=== PATIENT | female | born 1995 | race African-American/Black ===

== ENCOUNTER 2016-07-12 17:59 | Emergency (ER) | payer OTHER ==
--- NOTE | 2016-07-12 18:06 | PDOC ---
Rapid Medical Evaluation Time Seen by Provider: 07/12/16 18:01 Medical Evaluation: Allergies Allergy/AdvReac Type Severity Reaction Status Date / Time No Known Allergies Allergy Verified 07/24/13 11:52
--- NOTE | 2016-07-12 18:12 | PDOC ---
History of Present Illness - General History Source: Patient Exam Limitations: No Limitations - History of Present Illness Initial Comments: 07/12/16 18:20 CHIEF COMPLAINT: Abdominal pain/nausea/vomiting Advocacy Director: Dr. Santiago HISTORY OF PRESENT ILLNESS: Patient is a 21 year old female presented to the ED with the chief complaints of abdominal pain/nausea and vomiting. A/c to the patient, she did a home on Jun 29, 2016 and was positive. Since then she has been having nausea, 4-5 episodes of vomiting/day. Hasn't visited her sleep lab technician and hasn't taken vitamins. Patient says she has burning sensation over the epigastric area and throat every time she vomits and feels tired/ weak. Also mentions increased frequency of urination but denies dysuria, urgency, hesitancy or incontinence. Bowel habits normal. Has vaginal discharge more than before but is not itching. No vaginal bleeding. Had chlamydia once many years ago but no STD's since then. No new sexual partners over the past. Has a 3 year old healthy daughter. Appetite decreased Sleep disturbed since her illness. Recent Travel: None PAST MEDICAL HISTORY: None PAST SURGICAL HISTORY: As mentioned above Occupation: legal investigator Previous : Normal vaginal delivery, no complications. Social History: Smoking: Denies Alcohol: Occasional, hasn't taken alcohol since 3 weeks Drugs: Denies Family History: Unknown Allergies: NKDA 07/12/16 18:39 <Pilar Diggs - Last Filed: 07/12/16 18:51> <Rula Mancilla - Last Filed: 07/12/16 19:58> - General Stated Complaint: VOMITING/ABD PAIN/ Time Seen by Provider: 07/12/16 18:01 Past History - Past Medical History Asthma: No Cancer: No Cardiac Disorders: No Diabetes: No HTN: No Seizures: No Thyroid Disease: No - Immunization History Immunization Up to Date: (FLU ) - Psycho/Social/Smoking Cessation Hx Anxiety: No Suicidal Ideation: No Smoking History: Never smoked Have you smoked in the past 12 months: No Number of Cigarettes Smoked Daily: 0 Hx Alcohol Use: No Drug/Substance Use Hx: No Substance Use Type: None Hx Substance Use Treatment: No <Pilar Diggs - Last Filed: 07/12/16 18:51> <Rula Mancillah - Last Filed: 07/12/16 19:58> - Past Medical History Allergies/Adverse Reactions: Allergies Allergy/AdvReac Type Severity Reaction Status Date / Time No Known Allergies Allergy Verified 07/12/16 18:25 Home Medications: Ambulatory Orders Vitamins (Sjr) - 1 tab PO DAILY #1 10/01/13 Review of Systems - Review of Systems Able to Perform ROS?: Yes Comments:: 07/12/16 18:35 CONSTITUTIONAL: Absent: fever, chills, diaphoresis, generalized weakness, malaise, loss of appetite HEENT: Absent: rhinorrhea, nasal congestion, throat pain, throat swelling, difficulty swallowing, mouth swelling, ear pain, eye pain, visual Changes CARDIOVASCULAR: Absent: chest pain, syncope, palpitations, irregular heart rate, lightheadedness , peripheral edema RESPIRATORY: Absent: cough, shortness of breath, dyspnea with exertion, orthopnea, wheezing, stridor, hemoptysis GASTROINTESTINAL: Present: abdominal pain,nausea, vomiting Absent: , abdominal distension, diarrhea, constipation, melena, hematochezia GENITOURINARY: Absent: dysuria, frequency, urgency, hesitancy, hematuria, flank pain, genital pain MUSCULOSKELETAL: Absent: myalgia, arthralgia, joint swelling SKIN: Absent: rash, itching, pallor HEMATOLOGIC/IMMUNOLOGIC: Absent: easy bleeding, easy bruising, lymphadenopathy, frequent infections ENDOCRINE: Absent: unexplained weight gain, unexplained weight loss, heat intolerance, cold intolerance NEUROLOGIC: Absent: headache, focal weakness or paresthesias, dizziness, unsteady gait, seizure, mental status changes, bladder or bowel incontinence PSYCHIATRIC: Absent: anxiety, depression, suicidal or homicidal ideation, hallucinations. Is the patient limited Czech proficient: No <Pilar Diggs - Last Filed: 07/12/16 18:51> *Physical Exam - Physical Exam Comments: 07/12/16 18:40 PE: GENERAL: Awake, alert, and fully oriented, in no acute distress HEAD: No signs of trauma EYES: PERRLA, EOMI, sclera anicteric, conjunctiva clear ENT: Auricles normal inspection, hearing grossly normal, nares patent, oropharynx clear without exudates. Moist mucosa NECK: Normal ROM, supple, no lymphadenopathy, JVD, or masses LUNGS: Breath sounds equal, clear to auscultation bilaterally. No wheezes, and no crackles.. HEART: Regular rate and rhythm, normal S1 and S2, no murmurs, rubs or gallops ABDOMEN: Soft, nontender, normoactive bowel sounds. No guarding, no rebound. No masses EXTREMITIES: Normal range of motion, no edema. No clubbing or cyanosis. No cords, erythema, or tenderness NEUROLOGICAL: Cranial nerves II through XII grossly intact. Normal speech, normal gait SKIN: Warm, Dry, normal turgor, no rashes or lesions noted. <Pilar Diggs - Last Filed: 07/12/16 18:51> - Vital Signs Last Vital Signs Temp Pulse Resp BP Pulse Ox 98.7 F 79 18 128/77 100 07/12/16 17:59 07/12/16 17:59 07/12/16 17:59 07/12/16 17:59 07/12/16 17:59 <Rula Mancilla - Last Filed: 07/12/16 19:58> ED Treatment Course - LABORATORY CBC & Chemistry Diagram: 07/12/16 18:50 07/12/16 18:50 - ADDITIONAL ORDERS Additional order review: Laboratory Results 07/12/16 07/12/16 18:56 18:50 Sodium 135 L Potassium 3.5 Chloride 99 Carbon Dioxide 29 D Anion Gap 7 L BUN 7 Creatinine 0.6 D Creat Clearance w eGFR > 60 Random Glucose 73 L Calcium 8.8 Total Bilirubin 0.5 AST 9 L ALT 15 Alkaline Phosphatase 75 Total Protein 7.7 Albumin 4.0 Urine Color Yellow Urine Appearance Slcloudy Urine pH 6.0 Ur Specific [place] 1.020 Urine Protein Negative Urine Glucose (UA) Negative Urine Ketones Negative Urine Blood Negative Urine Nitrite Negative Urine Bilirubin Negative Urine Urobilinogen 2.0 e.u/dl H Ur Leukocyte Esterase Trace H Urine RBC 1 Urine WBC 5 Ur Epithelial Cells Few Urine Bacteria Rare Urine Mucus Many 07/12/16 18:50 RBC 4.52 MCV 81.3 MCHC 33.1 RDW 14.8 D MPV 9.7 Neutrophils % 71.5 Lymphocytes % 16.5 D Monocytes % 9.3 Eosinophils % 2.1 D Basophils % 0.6 <Rula Mancilla - Last Filed: 07/12/16 19:58> Medical Decision Making - Medical Decision Making 07/12/16 18:20 Patient seen and examined at bed side. Vitals, unremarkable. Labs noted, unremarkable. Patient looks comfortable. Will order CBC, CMP, UA, Bhcg Quantitative. R/O Metabolic disturbance due to vomiting Bhcg (quantitative) to know gestational age as patient doesn't remember her LMP. IV NS @ 125mls/hr Signed out to Dr. Mancilla Illness, Investigation and Plan of care explained to the patient. She verbalized understanding. Case seen and discussed with Dr. Mancilla. <Pilar Diggs - Last Filed: 07/12/16 18:51> *DC/Admit/Observation/Transfer <Pilar Diggs - Last Filed: 07/12/16 18:51> <Rula Mancilla - Last Filed: 07/12/16 19:58> Diagnosis at time of Disposition: Vomiting Qualifiers: Vomiting type: unspecified Vomiting Intractability: non-intractable Nausea presence: with nausea Qualified Code(s): R11.2 - Nausea with vomiting, unspecified - Discharge Dispostion Disposition: ELOPED
[2016-07-12 18:25] VITALS: BP 128/77; PULSE 79; TEMP 98.7; BMI 18.8
[2016-07-12] MEDS ORDERED: SODIUM CHLORIDE 1,000 ML IV SCH (19:00)
[2016-07-12 19:01] LABS: BASOPHIL 0.6 % (0-2.0); EOSINOPHIL 2.1 % (0-4.5); MCH 26.9 pg (25.7-33.7); MCHC 33.1 g/dl (32.0-36.0); MEAN CELL VOLUME 81.3 fl (80-96); MEAN PLT VOLUME 9.7 fl (7.5-11.1); NEUTROPHILS 71.5 % (42.8-82.8); PLATELET COUNT 276 K/MM3 (134-434); RDW 14.8 % (11.6-15.6); WHITE BLOOD COUNT 9.4 K/mm3 (4.0-10.0)
[2016-07-12 19:24] LABS: URINE APPEARANCE SLCLOUDY; URINE BILIRUBIN NEGATIVE (NEGATIVE); URINE BLOOD NEGATIVE (NEGATIVE); URINE COLOR YELLOW; URINE GLUCOSE (UA) NEGATIVE (NEGATIVE); URINE KETONE NEGATIVE (NEGATIVE); URINE NITRITE NEGATIVE (NEGATIVE); URINE PROTEIN NEGATIVE (NEGATIVE); URINE UROBILINOGEN 2.0 E.U/dl E.U./dl (0.2-1.0)
[2016-07-12 19:25] LABS: URINE LEUK ESTERASE TRACE (NEGATIVE)
--- NOTE | 2016-07-12 19:34 | PDOC ---
Attending Attestation - Resident Resident Name: Pilar Diggs - HPI HPI: 07/12/16 19:27 21 yo female states she had a positive home test on Jun 29. She said her last menstrual cycle was in May. She presents today because she has had nausea and vomiting and tender breasts -she wants to know how far along she is -she had a benign abdominal exam -she denies any pelvic pain or vaginal bleeding -pt eloped prior to having her lab results - Physicial Exam PE: 07/12/16 19:34 abdominal exam -soft, nontender,no guarding,no rebound lungs cta b/l [id number] pelvic -pt denies any cramping and bleeding neuro axox3, no gross focal deficits, appropriate affect - Medical Decision Making 07/12/16 19:37 impression is that pt came for preg US to find out how far along she was in her but I had to have bhcg back first and she didnt want to wait for lab results and she walked out of the ER
[2016-07-12 19:41] LABS: ANION GAP 7 (8-16); BILIRUBIN,TOTAL 0.5 mg/dL (0.2-1.0); CALCIUM 8.8 mg/dL (8.5-10.1); CO2 29 mmol/L (21-32); CREATININE 0.6 mg/dL (0.55-1.02); GLUCOSE,RANDOM 73 mg/dL (74-106); SGOT/AST 9 U/L (15-37); SGPT/ALT 15 U/L (12-78); TOT PROT 7.7 g/dl (6.4-8.2)
[2016-07-12 19:42] LABS: ALK PHOS 75 U/L (45-117)
[2016-07-12 19:45] LABS: URINE BACTERIA RARE /hpf (NONE SEEN); URINE MUCUS MANY; URINE RBC 1 /hpf (0-3); URINE WBC 5 /hpf (3-5)
== END 2016-07-12 19:55 | disposition left against medical advice (07) ==
LOC: JER 17:59
DX: O26.891 Other specified pregnancy related conditions, first trimester (principal); R11.2 Nausea with vomiting, unspecified; Z3A.00 Weeks of gestation of pregnancy not specified
CPT/HCPCS: 36415; 80053; 81003; 81015; 84702; 85025; 99282-25

== ENCOUNTER 2017-06-25 00:53 | Emergency (ER) | payer SELFPAY ==
[2017-06-25 01:21] VITALS: BMI 21.1
[2017-06-25] MEDS ORDERED: ACETAMINOPHEN 1000 MG/100 ML VIAL (NON FORMULARY) IVPB ONE ×2 (01:46→01:53)
[2017-06-25] MEDS ORDERED: ONDANSETRON 4 MG/2 ML VIAL IVPUSH PRN (01:46)
[2017-06-25] MEDS ORDERED: SODIUM CHLORIDE 0.9% 1000 ML INFUS.BAG IV ONE (01:46)
[2017-06-25] MEDS ORDERED: ONDANSETRON 4 MG/2 ML VIAL ONE (01:52)
[2017-06-25] MEDS ORDERED: ACETAMINOPHEN INJECTION 100 ML IVPB ONE (01:53)
[2017-06-25 02:19] LABS: HEMATOCRIT 36.3 % (32.4-45.2); HEMOGLOBIN 12.1 GM/dL (10.7-15.3); MCH 27.5 pg (25.7-33.7); MCHC 33.4 g/dl (32.0-36.0); MEAN CELL VOLUME 82.5 fl (80-96); MEAN PLT VOLUME 9.4 fl (7.5-11.1); PLATELET COUNT 230 K/MM3 (134-434); RDW 15.6 % (11.6-15.6); WHITE BLOOD COUNT 4.4 K/mm3 (4.0-10.0)
[2017-06-25 02:48] LABS: ALBUMIN 3.7 g/dl (3.4-5.0); ANION GAP 9 (8-16); BILIRUBIN,TOTAL 0.3 mg/dL (0.2-1.0); BLOOD UREA NITROGEN 7 mg/dL (7-18); CALCIUM 8.4 mg/dL (8.5-10.1); CHLORIDE 99 mmol/L (98-107); CO2 27 mmol/L (21-32); CREATININE 0.7 mg/dL (0.55-1.02); GLUCOSE,RANDOM 92 mg/dL (74-106); POTASSIUM 3.4 mmol/L (3.5-5.1); SGOT/AST 15 U/L (15-37); SGPT/ALT 19 U/L (12-78); SODIUM 135 mmol/L (136-145); TOT PROT 7.4 g/dl (6.4-8.2)
[2017-06-25 02:51] LABS: ALK PHOS 71 U/L (45-117)
[2017-06-25 03:35] VITALS: BP 122/61; PULSE 84; TEMP 99.1
--- NOTE | 2017-06-25 03:52 | PDOC ---
History of Present Illness - General Chief Complaint: Cold Symptoms Stated Complaint: VOMITING Time Seen by Provider: 06/25/17 01:06 - History of Present Illness Initial Comments: 06/25/17 03:48 CHIEF COMPLAINT: fever, vomiting HISTORY OF PRESENT ILLNESS: 22 yo F with recent positive preg test (two days ago ), cough, chills, nightsweats, body aches x 2 days. Patient states she did not know she had a fever until she arrived to ER. Patient reports one episode of vomiting today, denies diarrhea. Denies any abdominal pain, cramping, bleeding. Denies any urinary discomfort, burning, frequency. PAST MEDICAL HISTORY: Denies past medical history FAMILY HISTORY: Denies SOCIAL HISTORY: Denies tobacco, alcohol, illicit drug use. SURGICAL HISTORY: Denies ALLERGIES: No known drug allergies REVIEW OF SYSTEMS as per HPI PHYSICAL EXAM General Appearance: Well-appearing, appropriately dressed. No apparent distress , no intoxication. HEENT: EOMI, PERRLA, normal ENT inspection, normal voice, TMs normal, pharynx normal. No conjunctival pallor. No photophobia, scleral icterus. Neck: Supple. Trachea midline. No tenderness, rigidity, carotid bruit, stridor , lymphadenopathy, or thyromegaly. Respiratory/Chest: Lungs CTAB. No shortness of breath, chest tenderness, respiratory distress, accessory muscle use. No crackles, rales, rhonchi, stridor , wheezing, dullness Cardiovascular: RRR. S1, S2. No JVD, murmur, bradycardia, tachycardia. Vascular Pulses: Dorsalis-Pedis (R): 2+, Dorsalis-Pedis (L): 2+ Gastrointestinal/Abdominal: Normal bowel sounds. Abdomen soft, non-distended. No tenderness or rebound tenderness. No organomegaly, pulsatile mass, guarding , hernia, hepatomegaly, splenomegaly. Lymphatic: No adenopathy, tenderness. Musculoskeletal/Extremities: Normal inspection. FROM of all extremities, normal capillary refill. Pelvis Stable. No CVA tenderness. No tenderness to extremities, pedal edema, swelling, erythema or deformity. Integumentary: Appropriate color, dry, warm. No cyanosis, erythema, jaundice or rash Neurologic: headhunter II-XII intact. Fully oriented, alert. Appropriate mood/affect. Motor strength 5/5. No appreciable EOM palsy, facial droop or sensory deficit. 06/25/17 03:57 06/25/17 04:02 Past History - Past Medical History Allergies/Adverse Reactions: Allergies Allergy/AdvReac Type Severity Reaction Status Date / Time No Known Allergies Allergy Verified 06/25/17 01:18 Home Medications: Ambulatory Orders Vitamins (Sjr) - 1 tab PO DAILY #1 10/01/13 Acetaminophen [Tylenol -] 500 mg PO Q6H PRN #28 tablet 06/25/17 Ondansetron [Zofran Odt -] 4 mg SL TID PRN #21 od.tablet 06/25/17 Oseltamivir Phosphate [Tamiflu -] 75 mg PO BID #10 capsule 06/25/17 Asthma: No Cancer: No Cardiac Disorders: No Diabetes: No HTN: No Seizures: No Thyroid Disease: No - Reproductive History Is Patient Now?: Yes (#): 2 Para: 1 - Immunization History Immunization Up to Date: (FLU ) - Suicide/Smoking/Psychosocial Hx Smoking History: Never smoked Have you smoked in the past 12 months: No Number of Cigarettes Smoked Daily: 0 Information on smoking cessation initiated: No Hx Alcohol Use: No Drug/Substance Use Hx: No Substance Use Type: None Hx Substance Use Treatment: No *Physical Exam - Vital Signs Last Vital Signs Temp Pulse Resp BP Pulse Ox 99.1 F 84 16 122/61 99 06/25/17 03:35 06/25/17 03:35 06/25/17 03:35 06/25/17 03:35 06/25/17 03:35 ED Treatment Course - LABORATORY CBC & Chemistry Diagram: 06/25/17 02:04 06/25/17 02:04 - ADDITIONAL ORDERS Additional order review: Laboratory Results 06/25/17 02:04 Sodium 135 L Potassium 3.4 L Chloride 99 Carbon Dioxide 27 Anion Gap 9 BUN 7 Creatinine 0.7 Creat Clearance w eGFR > 60 Random Glucose 92 Calcium 8.4 L Total Bilirubin 0.3 D AST 15 ALT 19 Alkaline Phosphatase 71 Total Protein 7.4 Albumin 3.7 Beta HCG, Quant 5512.6 06/25/17 02:04 RBC 4.40 MCV 82.5 MCHC 33.4 RDW 15.6 MPV 9.4 Neutrophils % No Result Required. Lymphocytes % No Result Required. - Medications Given in the ED: ED Medications Discontinued Medications Generic Name Dose Route Start Last Admin Trade Name Freq PRN Reason Stop Dose Admin Acetaminophen 500 mg 06/25/17 01:46 06/25/17 02:07 Ofirmev Injection - IVPB 06/25/17 01:47 Not Given ONCE ONE Acetaminophen 1,000 mg 06/25/17 01:53 06/25/17 02:07 Ofirmev Injection - IVPB 06/25/17 01:54 1,000 mg ONCE ONE Administration Sodium Chloride 1,000 ml 06/25/17 01:46 06/25/17 02:07 Normal Saline - IV 06/25/17 01:47 1,000 ml ONCE ONE Administration Medical Decision Making - Medical Decision Making 06/25/17 03:58 22 yo F with recent positive preg test, cough, chills, nightsweats, body aches x 2 days. -CBC, CMP, beta hcg -tylenol, zofran *DC/Admit/Observation/Transfer Diagnosis at time of Disposition: Flu-like symptoms Vomiting Qualifiers: Vomiting type: unspecified Vomiting Intractability: non-intractable Nausea presence: unspecified Qualified Code(s): R11.10 - Vomiting, unspecified - Discharge Dispostion Disposition: HOME Condition at time of disposition: Stable Admit: No - Prescriptions Prescriptions: Acetaminophen [Tylenol -] 500 mg PO Q6H PRN #28 tablet PRN Reason: Fever Ondansetron [Zofran Odt -] 4 mg SL TID PRN #21 od.tablet PRN Reason: Nausea And/Or Vomiting Oseltamivir Phosphate [Tamiflu -] 75 mg PO BID #10 capsule - Referrals Referrals: Kali Nick [Primary Care Provider] - Jae Monreal MD [Staff Physician] - - Patient Instructions Printed Discharge Instructions: DI for Influenza -- Adult, DI for Vomiting -- Adult Additional Instructions: Pleaes take medications as prescribed. Return to the emergency department immediately with ANY new, persistent or worsening symptoms. You MUST call and follow up with your OBGYN by the end of next week. Please make sure your doctor reviews the results of your emergency department evaluation. - Post Discharge Activity
== END 2017-06-25 04:18 | disposition home or self-care (01) ==
LOC: JER 00:53
DX: O26.891 Other specified pregnancy related conditions, first trimester (principal); O98.511 Other viral diseases complicating pregnancy, first trimester; B33.8 Other specified viral diseases; Z3A.00 Weeks of gestation of pregnancy not specified
CPT/HCPCS: 36415; 80053; 84702; 85025; 99282-25

== ENCOUNTER 2017-07-19 18:32 | Emergency (ER) | payer OTHER ==
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
[2017-07-19 19:14] VITALS: BP 127/74; PULSE 88; TEMP 98.1; BMI 22.5
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
--- NOTE | 2017-07-19 19:54 | PDOC ---
Attending Attestation - Resident Resident Name: Raffy Westfall - ED Attending Attestation I have performed the following: I have examined & evaluated the patient, The case was reviewed & discussed with the resident, I agree w/resident's findings & plan, Exceptions are as noted - HPI HPI: 07/19/17 22:27 22 yo female p/w vaginal bleeding and approx 8 weeks head ncat neck supple lungs cta b.l cvr [id number] abd no rebound pelvic done by resident ext no e/c/c neuro axox3,ambu;atory psych appropriate - Physicial Exam PE: 07/20/17 01:44 head ncat neck supple lungs cta b/l cvs [id number] abd no rebound ext no e/c/c neuro axox3,ambulatory skin warma and dry psych appropriate pelvic done by resident - Medical Decision Making 07/19/17 23:33 bhcg >5000 intrauterine sac no pole threatened ab 07/19/17 23:41 plan repeat bhcg and US in 48 hours
[2017-07-19 20:43] LABS: BASO % 0.5 % (0-2.0); EOS % 2.1 % (0-4.5); HEMATOCRIT 36.6 % (32.4-45.2); HEMOGLOBIN 12.6 GM/dL (10.7-15.3); LYMPH % 23.3 % (8-40); MCH 28.6 pg (25.7-33.7); MCHC 34.3 g/dl (32.0-36.0); MEAN CELL VOLUME 83.4 fl (80-96); MEAN PLT VOLUME 9.2 fl (7.5-11.1); MONO % 12.8 % (3.8-10.2); NEUT % 61.3 % (42.8-82.8); PLATELET COUNT 318 K/MM3 (134-434); RBC 4.39 M/mm3 (3.60-5.2); RDW 15.8 % (11.6-15.6); WHITE BLOOD COUNT 8.8 K/mm3 (4.0-10.0)
[2017-07-19 21:10] LABS: ALBUMIN 4.2 g/dl (3.4-5.0); ANION GAP 7 (8-16); BLOOD UREA NITROGEN 8 mg/dL (7-18); CALCIUM 8.7 mg/dL (8.5-10.1); CHLORIDE 104 mmol/L (98-107); CO2 26 mmol/L (21-32); GLUCOSE,RANDOM 78 mg/dL (74-106); POTASSIUM 3.9 mmol/L (3.5-5.1); SODIUM 137 mmol/L (136-145)
[2017-07-19 21:14] LABS: ALK PHOS 78 U/L (45-117); BILIRUBIN,TOTAL 0.7 mg/dL (0.2-1.0); CREATININE 0.6 mg/dL (0.55-1.02); SGOT/AST 10 U/L (15-37); SGPT/ALT 16 U/L (12-78); TOT PROT 7.9 g/dl (6.4-8.2)
== END 2017-07-19 23:34 | disposition home or self-care (01) ==
LOC: JER 18:32
DX: O26.891 Other specified pregnancy related conditions, first trimester (principal); Z3A.10 10 weeks gestation of pregnancy; N93.9 Abnormal uterine and vaginal bleeding, unspecified
CPT/HCPCS: 36415; 76817-TC; 80053; 84702; 85025; 86850; 86900; 86901; 99282-25

== ENCOUNTER 2020-11-19 20:41 | Emergency (ER) | payer OTHER ==
[2020-11-19 21:16] VITALS: BP 130/76; PULSE 75; TEMP 98.5; BMI 22.7
[2020-11-19] MEDS ORDERED: ACETAMINOPHEN 500 MG TABLET (FP) PO ONE (23:15)
== END 2020-11-19 23:46 | disposition home or self-care (01) ==
LOC: JER 20:41
DX: O71.89 Other specified obstetric trauma (principal); S43.402A Unspecified sprain of left shoulder joint, initial encounter; S39.012A Strain of muscle, fascia and tendon of lower back, initial encounter; Z3A.09 9 weeks gestation of pregnancy
CPT/HCPCS: 76700-TC; 76810-TC; 99284-25

== ENCOUNTER 2025-01-13 13:48 | Emergency (ER) | payer OTHER ==
[2025-01-13 13:55] VITALS: BP 114/68; PULSE 94; RESP 20; TEMP 98.4; BMI 21.9
[2025-01-13] MEDS: SODIUM CHLORIDE 0.9% 500 ML INFUS.BAG IV ONE (14:16)
[2025-01-13] MEDS ORDERED: ONDANSETRON 4 MG/2 ML VIAL ONE (14:25)
[2025-01-13] MEDS: ONDANSETRON 4 MG/2 ML VIAL IVPUSH ONE (15:17)
[2025-01-13 15:18] LABS: ABSOLUTE IMMATURE GRANULOCYTES 0.05 x10^3/uL (0.0-0.031); BASOPHILS # 0.06 x10^3/uL (0.01-0.08); EOSINOPHIL % 0.5 % (0.7-5.8); EOSINOPHILS # 0.06 x10^3/uL (0.04-0.36); MCHC 34.1 g/dl (32.2-35.5); MEAN CELL VOLUME 84.3 fl (79.4-94.8); MEAN PLT VOLUME 11.9 fl (9.4-12.3); MONOCYTE # 0.81 x10^3/uL (0.24-0.86); MONOCYTE % 7.1 % (4.7-12.5); RDW 12.2 % (12.1-16.5)
[2025-01-13 15:24] LABS: EPI CELLS >36 /uL (0-25.1); HYALINE CASTS 1 /uL (0-3.1); URINE APPEARANCE CLOUDY; URINE BACTERIA 2207 /uL (0-1359); URINE BILIRUBIN NEGATIVE (NEGATIVE); URINE COLOR YELLOW; URINE GLUCOSE (UA) NEGATIVE (NEGATIVE); URINE KETONE 2+ (NEGATIVE); URINE LEUK ESTERASE TRACE (NEGATIVE); URINE NITRITE NEGATIVE (NEGATIVE); URINE PROTEIN NEGATIVE (NEGATIVE); URINE RBC 12 /uL (0-23.9); URINE UROBILINOGEN 2.0 mg/dL (0.2-1.0); URINE WBC 39 /uL (0-25.8)
[2025-01-13 15:39] LABS: GLUCOSE,RANDOM 79.0 mg/dL (74-106); TOT PROT 8.1 g/dl (6.4-8.2)
[2025-01-13 15:40] LABS: CO2 23.0 mmol/L (21-32)
[2025-01-13 15:42] LABS: ALK PHOS 73.0 U/L (40-150)
[2025-01-13 15:44] LABS: SGOT/AST 19.0 U/L (5-34); SGPT/ALT 14.0 U/L (0-55)
[2025-01-13 15:45] LABS: CREATININE 0.59 mg/dL (0.55-1.3)
[2025-01-13 16:07] LABS: HCV DIAGNOSTIC IN-HOUSE W/RFLX NON-REACTIVE (NONREACTIVE)
[2025-01-13 16:08] LABS: HIV INTERPRETATION NEGATIVE (NEGATIVE)
[2025-01-13] MEDS ORDERED: METOCLOPRAMIDE HCL INJECTION 10 MG/2 ML VIAL ONE (16:46)
[2025-01-13] MEDS: METOCLOPRAMIDE HCL INJECTION 10 MG/2 ML VIAL IVPUSH ONE (16:51)
[2025-01-13] MEDS: PYRIDOXINE HCL (B-6) 100 MG TABLET PO ONE (16:56)
[2025-01-13] MEDS: PYRIDOXINE HCL (B-6) 50 MG TABLET (FP) PO ONE (16:58)
== END 2025-01-13 17:14 | disposition home or self-care (01) ==
LOC: JER 13:48
PROC: 3E033GC Introduction of Other Therapeutic Substance into Peripheral Vein, Percutaneous Approach (ICD-10-PCS; principal; 2025-01-13)
PROC: 3E033GC Introduction of Other Therapeutic Substance into Peripheral Vein, Percutaneous Approach (ICD-10-PCS; 2025-01-13)
DX: R11.2 Nausea with vomiting, unspecified (principal); Z32.01 Encounter for pregnancy test, result positive
CPT/HCPCS: 36415; 80053; 81003; 84702; 84703; 85025; 86803; 87086; 87389; 99284-25